=== PATIENT | male | born 1950 | race Caucasian/White ===

== ENCOUNTER 2016-11-09 13:04 | Emergency (ER) | payer OTHER ==
[~2016-11-09 13:04] MED LIST: ALLERGY RELIEF10 M1 PO; ASPIRIN325 MG PO; COUMADIN6 MG PO; FLOMAX0.4 MG PO; GLUCOPHAGE1000 MG PO; GLYBURIDE5 MG PO; ISOSORBIDE MON120 MG PO; LANOXIN250 MCG PO; LEVAQUIN500 MG PO; LISINOPRIL40 MG PO; LOPRESSOR100 MG PO; NORVASC10 MG PO; PLAVIX75 MG PO; ZOCOR20 MG PO
[2016-11-09 14:25] LABS: BASO # 0.1 10_X3_uL (0.0-0.1); BASO % 0.5 % (0.2-1.2); EOS # 0.2 10_X3_uL (0.0-0.5); EOS % 2.2 % (0.8-7.0); GRAN # 6.4 10_X3_uL (1.8-5.4); GRAN % 64.9 % (34.0-67.9); HEMATOCRIT 37.2 % (40-51); HEMOGLOBIN 12.1 g/dL (13.7-17.5); LYMPH # 2.4 10_X3_uL (1.3-3.6); LYMPH % 24.2 % (21.8-53.1); MEAN CORPUSCULAR HEMOGLOBIN 25.1 pg (27.0-33.0); MEAN CORPUSCULAR HGB CONC 32.5 g/dL (32.0-36.0); MEAN PLATELET VOLUME 9.6 fl (7.5-11.5); MONO # 0.8 10_X3_uL (0.3-0.8); MONO % 8.2 % (5.3-12.2); PLATELET COUNT 296 x10_3/uL (163-337); RED BLOOD COUNT 4.83 x10_6/uL (4.6-6.1); RED CELL DISTRIBUTION WIDTH 15.1 % (11.6-14.4); WHITE BLOOD COUNT 9.9 x10_3/uL (4.2-9.1)
[2016-11-09 14:41] LABS: INR 2.7 (0.9-1.1); PARTIAL THROMBOPLASTIN TIME 40.9 SECONDS (21.3-29.3); PROTHROMBIN TIME (PATIENT) 27.4 SECONDS (9.9-11.1)
== END 2016-11-09 15:31 | disposition home or self-care (01) ==
LOC: ER 13:04
PROVIDERS: Internal Medicine
DX: R04.0 Epistaxis (principal); I25.10 Atherosclerotic heart disease of native coronary artery without angina pectoris; Z95.5 Presence of coronary angioplasty implant and graft; Z95.1 Presence of aortocoronary bypass graft; Z79.82 Long term (current) use of aspirin; Z79.01 Long term (current) use of anticoagulants; Z79.899 Other long term (current) drug therapy
CPT/HCPCS: 36415; 85025; 85610; 85730; 99283